=== PATIENT | male | born 1980 | race Two or more races ===

== ENCOUNTER 2018-09-30 21:17 | Emergency (ER) | payer MEDICAID ==
[~2018-09-30] VITALS: Ht 170.2 cm; Wt 99.8 kg
[2018-09-30 21:43] VITALS: BP 142/97
[2018-10-01] MEDS ORDERED: cefTRIAXone SOD 1,000 MG VL IM ONE (00:45)
[2018-10-01] MEDS ORDERED: KETOROLAC TROMETH 60MG/2ML VIAL IM ONE (00:45)
[2018-10-01] MEDS ORDERED: TETANUS-DIPTH-ACEL PERTUSSIS 0.5ML SYRG IM ONE (00:45)
== END 2018-10-01 01:08 | disposition home or self-care (01) ==
LOC: ER 21:17
DX: S91.311A Laceration without foreign body, right foot, initial encounter (principal); L03.115 Cellulitis of right lower limb; W22.8XXA Striking against or struck by other objects, initial encounter; Y93.39 Activity, other involving climbing, rappelling and jumping off; Y92.89 Other specified places as the place of occurrence of the external cause; Y99.8 Other external cause status
CPT/HCPCS: 73630; 90471; 90715; 96372; 99283; J0696; J1885

== ENCOUNTER 2020-02-12 08:13 | Emergency (ER) | payer MEDICAID ==
[~2020-02-12] VITALS: Ht 170.2 cm; Wt 99.8 kg
[2020-02-12 08:58] VITALS: BP 121/81
[2020-02-12 08:58] LABS: Basophils # (auto) 0 10 ^3/uL (0-0.2); Basophils % (auto) 0.5 % (0.0-2.0); Eosinophils # (auto) 0.1 10 ^3/uL (0-0.8); Eosinophils % (auto) 2.1 % (0.0-7.0); Hematocrit 48.4 % (41.0-53.0); Hemoglobin 15.7 g/dL (13.5-17.5); Lymphocytes # (auto) 1.3 10 ^3/uL (0.4-5.4); Lymphocytes % (auto) 21.4 % (10.0-50.0); Mean Corpuscular Hemoglobin 29.6 pg (28.0-32.0); Mean Corpuscular Hgb Conc. 32.4 g/dL (32.0-36.0); Mean Corpuscular Volume 91.3 fL (80.0-100.0); Monocytes # (auto) 0.4 10 ^3/uL (0-1.3); Neutrophils # (auto) 4.2 10 ^3/uL (1.6-8.6); Platelet Count (auto) 303 10^3/uL (140-450); Red Cell Distribution Width 13.3 % (11.8-14.3); White Blood Cell 6.2 10^3/uL (4.4-10.8)
[2020-02-12 09:22] LABS: Alanine Aminotransferase 66 U/L (16-61); Albumin 3.4 g/dL (3.4-5.0); Anion Gap 5 (5-15); Aspartate Aminotransferase 28 U/L (15-37); BUN/Creatinine Ratio 9.3; Blood Alcohol < 3.0 mg/dL (0-5); Blood Urea Nitrogen 10 mg/dL (7-18); Calcium 8.6 mg/dL (8.5-10.1); Carbon Dioxide 29 mmol/L (21-32); Chloride 103 mmol/L (98-107); GFR African American 99 mL/min; GFR Non-African American 82 mL/min; Glucose 104 mg/dL (74-106); Lipase 119 U/L (73-393); Potassium 4.1 mmol/L (3.5-5.1); Sodium 137 mmol/L (136-145)
[2020-02-12 09:25] LABS: Alkaline Phosphatase 114 U/L (45-117); Bilirubin, Total 0.3 mg/dL (0.2-1.0); Total Protein 7.5 g/dL (6.4-8.2)
[2020-02-12 09:26] LABS: Urine Bacteria NONE SEEN /hpf (None Seen); Urine Blood Negative /uL (Negative); Urine Specific Gravity 1.019 (1.001-1.035); Urine WBC <1 /hpf (0 - 3)
[2020-02-12 09:42] LABS: Alcohol, Urine < 3.0 mg/dL (0-5); Amphetamine Screen, Urine NEGATIVE (NEGATIVE); Barbiturate Scree,Urine NEGATIVE (NEGATIVE); Benzodiazephine Screen, Urine NEGATIVE (NEGATIVE); Cannabinoid Screen, Urine NEGATIVE (NEGATIVE); Cocaine Screen, Urine NEGATIVE (NEGATIVE); Opiate Scree,Urine NEGATIVE (NEGATIVE); Phencyclidine Screen, Urine NEGATIVE (NEGATIVE)
== END 2020-02-12 09:51 | disposition home or self-care (01) ==
LOC: ER 08:13
DX: K52.9 Noninfective gastroenteritis and colitis, unspecified (principal); K57.32 Diverticulitis of large intestine without perforation or abscess without bleeding
CPT/HCPCS: 36415; 74176; 80053; 80307; 80320; 81001; 83690; 85025

== ENCOUNTER 2023-05-04 12:20 | Emergency (ER) | payer MEDICAID ==
[~2023-05-04] VITALS: Ht 170.2 cm; Wt 91.0 kg
[2023-05-04] MEDS ORDERED: SODIUM CHLORIDE 0.9% 1,000 ML IV ONE (12:30)
[2023-05-04 13:18] LABS: Basophils # (auto) 0 10 ^3/uL (0-0.2); Basophils % (auto) 0.9 % (0.0-2.0); Eosinophils # (auto) 0.1 10 ^3/uL (0-0.8); Eosinophils % (auto) 2.7 % (0.0-7.0); Hematocrit 45.1 % (41.0-53.0); Hemoglobin 15.1 g/dL (13.5-17.5); Lymphocytes # (auto) 1.8 10 ^3/uL (0.4-5.4); Lymphocytes % (auto) 37.9 % (10.0-50.0); Mean Corpuscular Hemoglobin 29.9 pg (28.0-32.0); Mean Corpuscular Hgb Conc. 33.4 g/dL (32.0-36.0); Mean Corpuscular Volume 89.6 fL (80.0-100.0); Monocytes # (auto) 0.3 10 ^3/uL (0-1.3); Neutrophils # (auto) 2.4 10 ^3/uL (1.6-8.6); Neutrophils % (auto) 51.5 % (37.0-80.0); Nucleated Red Blood Cells % 0.2 %; Red Blood Cells 5.04 10^6/uL (4.5-5.90); Red Cell Distribution Width 12.8 % (11.8-14.3); White Blood Cell 4.7 10^3/uL (4.4-10.8)
[2023-05-04 13:30] LABS: Albumin 3.6 g/dL (3.4-5.0); Calcium 8.8 mg/dL (8.5-10.1); Potassium 4.2 mmol/L (3.5-5.1)
[2023-05-04 13:33] LABS: BUN/Creatinine Ratio 11.4 (10.0-20.0); Bilirubin, Total 0.3 mg/dL (0.2-1.0); Total Protein 6.7 g/dL (6.4-8.2)
[2023-05-04 13:49] VITALS: BP 151/102; TEMP 98.2
[2023-05-04 14:53] LABS: Urine Bacteria NONE SEEN /hpf (None Seen); Urine Blood Negative /uL (Negative); Urine Clarity Clear (Clear); Urine Color Yellow (Yellow); Urine Protein, UAD Negative (Negative); Urine Specific Gravity 1.025 (1.001-1.035); Urine Urobilinogen Normal (Negative); Urine WBC <1 /hpf (0 - 3)
[2023-05-04 15:14] VITALS: PULSE 76; RESP 16; O2SAT 98
[2023-05-04] MEDS ORDERED: PROM1SOL4 PO (16:23)
[2023-05-04] MEDS ORDERED: BENZ100C97 PO (16:23)
== END 2023-05-04 16:31 | disposition home or self-care (01) ==
LOC: ER 12:20
DX: J06.9 Acute upper respiratory infection, unspecified (principal)
CPT/HCPCS: 36415; 71101; 74176; 80053; 81001; 85025; 96360; 99284; J7030

== ENCOUNTER 2023-05-22 13:08 | Emergency (ER) | payer MEDICAID ==
[~2023-05-22] VITALS: Ht 170.2 cm; Wt 105.4 kg
[~2023-05-22 13:08] MED LIST: BENZ100C97 PO; PROM1SOL4 PO
[2023-05-22 14:05] LABS: Basophils # (auto) 0 10 ^3/uL (0-0.2); Basophils % (auto) 0.8 % (0.0-2.0); Eosinophils # (auto) 0.2 10 ^3/uL (0-0.8); Eosinophils % (auto) 3.5 % (0.0-7.0); Hematocrit 45.2 % (41.0-53.0); Hemoglobin 14.6 g/dL (13.5-17.5); Lymphocytes % (auto) 45.2 % (10.0-50.0); Mean Corpuscular Hemoglobin 29.2 pg (28.0-32.0); Mean Corpuscular Hgb Conc. 32.3 g/dL (32.0-36.0); Mean Corpuscular Volume 90.6 fL (80.0-100.0); Monocytes # (auto) 0.3 10 ^3/uL (0-1.3); Monocytes % (auto) 6.8 % (0.0-12.0); Neutrophils % (auto) 43.7 % (37.0-80.0); Nucleated Red Blood Cells % 0.3 %; Red Blood Cells 4.99 10^6/uL (4.5-5.90); Red Cell Distribution Width 12.8 % (11.8-14.3); White Blood Cell 4.5 10^3/uL (4.4-10.8)
[2023-05-22 14:05] LABS: Urine Bacteria FEW /hpf (None Seen); Urine Blood Negative /uL (Negative); Urine Clarity Clear (Clear); Urine Color Yellow (Yellow); Urine Mucus FEW (None Seen); Urine Protein, UAD TRACE (Negative); Urine Specific Gravity 1.027 (1.001-1.035); Urine Urobilinogen Normal (Negative); Urine WBC 1 /hpf (0 - 3); Urine pH 6.5 (5.0-8.0)
[2023-05-22 14:18] LABS: Alanine Aminotransferase 70 U/L (7-40); Albumin 4.6 g/dL (3.2-4.8); Alkaline Phosphatase 99 U/L (46-116); Anion Gap 4.1 (5-15); Aspartate Aminotransferase 24 U/L (13-40); BUN/Creatinine Ratio 7.8 (10.0-20.0); Bilirubin, Total 0.4 mg/dL (0.2-1.0); Blood Urea Nitrogen 8 mg/dL (9-23); Calcium 9.1 mg/dL (8.7-10.4); Carbon Dioxide 28.9 mmol/L (20-30); Chloride 106 mmol/L (98-107); Glucose 101 mg/dL (74-106); Potassium 4.2 mmol/L (3.5-5.1); Sodium 139 mmol/L (136-145)
[2023-05-22] MEDS ORDERED: KETOROLAC TROMETH 60MG/2ML VIAL IM ONE (15:45)
[2023-05-22] MEDS ORDERED: CEPH500C PO (15:52)
[2023-05-22 16:03] VITALS: BP 124/88; PULSE 60; RESP 17; TEMP 99.2; O2SAT 99
== END 2023-05-22 16:25 | disposition home or self-care (01) ==
LOC: ER 13:08
DX: R07.81 Pleurodynia (principal); Z79.899 Other long term (current) drug therapy
CPT/HCPCS: 36415; 74176; 80053; 81001; 85025; 96372; 99285; J1885

== ENCOUNTER 2023-07-26 09:55 | Emergency (ER) | payer MEDICAID ==
[~2023-07-26] VITALS: Ht 170.2 cm; Wt 106.1 kg
[~2023-07-26 09:55] MED LIST changes: +CEPH500C PO
[2023-07-26] MEDS ORDERED: AZIT500T66 PO (10:39)
[2023-07-26] MEDS ORDERED: LIDO2SOL26 MT (10:39)
[2023-07-26 10:43] VITALS: BP 147/83; PULSE 96; RESP 20; TEMP 97.3; O2SAT 99
== END 2023-07-26 10:45 | disposition home or self-care (01) ==
LOC: ER 09:55
DX: J02.9 Acute pharyngitis, unspecified (principal)

== ENCOUNTER 2023-12-03 12:41 | Emergency (ER) | payer MEDICAID, OTHER ==
[~2023-12-03] VITALS: Ht 170.2 cm; Wt 106.5 kg
[~2023-12-03 12:41] MED LIST changes: +AZIT500T66 PO; +LIDO2SOL26 MT
[2023-12-03 13:57] VITALS: BP 146/89
[2023-12-03] MEDS ORDERED: CEPH250C PO (14:26)
[2023-12-03] MEDS: TETANUS-DIPTH-ACEL PERTUSSIS 0.5ML SYR Tdap IM ONE (14:30)
[2023-12-03] MEDS: HYDROcodone-ACET 5/325MG TAB PO ONE (15:16)
[2023-12-03 15:17] VITALS: PULSE 85; RESP 18; O2SAT 96
== END 2023-12-03 15:50 | disposition home or self-care (01) ==
LOC: ER 12:41
DX: S00.03XA Contusion of scalp, initial encounter (principal); M79.602 Pain in left arm; W11.XXXA Fall on and from ladder, initial encounter; Y93.89 Activity, other specified; Y92.89 Other specified places as the place of occurrence of the external cause; Y99.8 Other external cause status
CPT/HCPCS: 70450; 71250; 72125; 74176; 90471; 90715

== ENCOUNTER 2024-02-16 07:24 | Inpatient (IN) | payer OTHER ==
[2024-02-15 18:04] VITALS: BP 139/87; PULSE 77; RESP 18; TEMP 97.8; O2SAT 99
[~2024-02-16] VITALS: Ht 170.2 cm; Wt 108.4 kg
[~2024-02-16 07:24] MED LIST changes: +CEPH250C PO; -CEPH500C PO
[2024-02-16 07:59] LABS: Urine Bacteria None Seen /hpf (None Seen)
[2024-02-16 08:01] LABS: Basophils # (auto) 0.1 10 ^3/uL (0-0.2); Basophils % (auto) 0.5 % (0.0-2.0); Eosinophils # (auto) 0.1 10 ^3/uL (0-0.8); Eosinophils % (auto) 0.6 % (0.0-7.0); Hematocrit 46.9 % (41.0-53.0); Hemoglobin 15.6 g/dL (13.5-17.5); Lymphocytes % (auto) 18.6 % (10.0-50.0); Mean Corpuscular Hemoglobin 29.6 pg (28.0-32.0); Mean Corpuscular Hgb Conc. 33.2 g/dL (32.0-36.0); Mean Corpuscular Volume 89.3 fL (80.0-100.0); Monocytes # (auto) 0.6 10 ^3/uL (0-1.3); Monocytes % (auto) 5.8 % (0.0-12.0); Neutrophils # (auto) 7.9 10 ^3/uL (1.6-8.6); Neutrophils % (auto) 74.5 % (37.0-80.0); Red Blood Cells 5.25 10^6/uL (4.5-5.90); Red Cell Distribution Width 13.3 % (11.8-14.3); White Blood Cell 10.7 10^3/uL (4.4-10.8)
[2024-02-16 08:04] LABS: Urine Blood TRACE /uL (Negative); Urine Clarity Clear (Clear); Urine Color Yellow (Yellow); Urine Protein, UAD TRACE (Negative); Urine Specific Gravity 1.026 (1.001-1.035); Urine Urobilinogen Normal (Negative); Urine WBC <1 /hpf (0 - 3)
[2024-02-16 08:10] LABS: Chloride 105 mmol/L (98-107); Potassium 4.2 mmol/L (3.5-5.1); Sodium 136 mmol/L (136-145)
[2024-02-16 08:11] LABS: Anion Gap 6 (5-15); Calcium 9.5 mg/dL (8.5-10.1); Carbon Dioxide 25 mmol/L (20-30)
[2024-02-16 08:16] LABS: BUN/Creatinine Ratio 8.1 (10.0-20.0); Blood Urea Nitrogen 8 mg/dL (9-23); Glucose 107 mg/dL (74-106)
[2024-02-16] MEDS: PANTOPRAZOLE 40 MG/10 ML VIAL INJ IV ONE (10:10)
[2024-02-16] MEDS: ONDANSETRON HCL 4 MG/2 ML VIAL IV ONE (10:10)
[2024-02-16] MEDS: MORPHINE SULFATE 4 MG/ML SYR/VIAL IV ONE (10:10)
[2024-02-16 10:18] VITALS: PULSE 76; RESP 16; O2SAT 93
[2024-02-16] MEDS ORDERED: MORPHINE SULFATE INJ 2 MG/ml SYRG IV PRN (10:45)
[2024-02-16] MEDS ORDERED: KETOROLAC TROMETH 30 MG/ML 1ML VIAL IV PRN (10:45)
[2024-02-16] MEDS ORDERED: ONDANSETRON HCL 4 MG/2 ML VIAL IV PRN (10:45)
[2024-02-16] MEDS: SODIUM CHLORIDE 0.9% 1,000 ML IV SCH (10:55)
[2024-02-16] MEDS: SODIUM CHLORIDE 0.9% 2,000 ML IV ONE (10:55)
[2024-02-16] MEDS: KETOROLAC TROMETH 30 MG/ML 1ML VIAL IV ONE (10:56)
[2024-02-16] MEDS: HYDROcodone-ACET 5/325MG TAB PO PRN (15:54)
[2024-02-16 18:04] VITALS: BP 139/87; PULSE 77; RESP 18; RESP 19; TEMP 97.8; O2SAT 99
[2024-02-16 18:29] VITALS: BP 139/87; PULSE 76; RESP 18; TEMP 98.4; O2SAT 96
[2024-02-16 20:00] VITALS: PULSE 83; RESP 18; O2SAT 99
[2024-02-16] MEDS: ACETAMINOPHEN 325 MG TAB PO PRN (21:15)
[2024-02-16 21:47] VITALS: BP 157/97; PULSE 83; RESP 18; TEMP 99.2; O2SAT 99
[2024-02-17] VITALS (8 sets, daily range): BP systolic 127–158; BP diastolic 69–95; PULSE 59–82; RESP 16–20; TEMP 98.1–99.3; O2SAT 94–97
[2024-02-17 06:14] LABS: Basophils # (auto) 0 10 ^3/uL (0-0.2); Basophils % (auto) 0.4 % (0.0-2.0); Eosinophils # (auto) 0.1 10 ^3/uL (0-0.8); Eosinophils % (auto) 1.7 % (0.0-7.0); Hematocrit 41.4 % (41.0-53.0); Hemoglobin 13.5 g/dL (13.5-17.5); Lymphocytes # (auto) 1.7 10 ^3/uL (0.4-5.4); Lymphocytes % (auto) 20.4 % (10.0-50.0); Mean Corpuscular Hemoglobin 29.6 pg (28.0-32.0); Mean Corpuscular Hgb Conc. 32.6 g/dL (32.0-36.0); Mean Corpuscular Volume 90.8 fL (80.0-100.0); Monocytes # (auto) 0.6 10 ^3/uL (0-1.3); Monocytes % (auto) 7.2 % (0.0-12.0); Neutrophils % (auto) 70.3 % (37.0-80.0); Red Blood Cells 4.56 10^6/uL (4.5-5.90); Red Cell Distribution Width 13.4 % (11.8-14.3); White Blood Cell 8.5 10^3/uL (4.4-10.8)
[2024-02-17 06:29] LABS: Alanine Aminotransferase 22 U/L (7-40); Albumin 3.9 g/dL (3.2-4.8); Alkaline Phosphatase 93 U/L (46-116); Anion Gap 5 (5-15); Aspartate Aminotransferase 11 U/L (13-40); BUN/Creatinine Ratio 7.8 (10.0-20.0); Blood Urea Nitrogen 7 mg/dL (9-23); Calcium 9.2 mg/dL (8.7-10.4); Carbon Dioxide 27 mmol/L (20-30); Chloride 104 mmol/L (98-107); Glucose 89 mg/dL (74-106); Lipase 65 U/L (12-53); Potassium 4.2 mmol/L (3.5-5.1); Sodium 136 mmol/L (136-145)
[2024-02-17 06:30] LABS: Bilirubin, Total 0.9 mg/dL (0.2-1.0); Total Protein 6.4 g/dL (5.7-8.2)
[2024-02-17] MEDS: PANTOPRAZOLE 40 MG/10 ML VIAL INJ IV SCH (08:29)
[2024-02-17] MEDS: ENOXAPARIN SOD 40 MG/0.4 ML SYRINGE SC SCH (08:36)
[2024-02-18 01:00] VITALS: BP 139/86; PULSE 67; RESP 16; TEMP 98.2; O2SAT 97
[2024-02-18 05:00] VITALS: BP 148/69; PULSE 68; RESP 15; TEMP 97.3; O2SAT 97
[2024-02-18] MEDS ORDERED: PANT40T PO (07:51)
[2024-02-18 08:00] VITALS: BP 143/72; PULSE 70; PULSE 79; RESP 18; TEMP 98.2; O2SAT 96
[2024-02-18 09:00] VITALS: BP 135/90; PULSE 70; RESP 18; TEMP 98.1; O2SAT 96
== END 2024-02-18 10:44 | disposition home or self-care (01) | DRG 282 ==
LOC: ER 07:24 → OVERFLOW 10:39 → CENTRAL 18:27
PROVIDERS: ADMIT Nurse Practitioner Family; ATTEND Family Medicine
DX: K85.90 Acute pancreatitis without necrosis or infection, unspecified (principal); E86.0 Dehydration; Z79.2 Long term (current) use of antibiotics; Z79.899 Other long term (current) drug therapy
CPT/HCPCS: 36415; 74176; 80048; 80053; 80320; 81001; 83690; 85025; C9113; G0378; J1885; J2405

== ENCOUNTER 2024-05-11 18:16 | Emergency (ER) | payer MEDICAID, OTHER ==
[~2024-05-11] VITALS: Ht 170.2 cm; Wt 110.0 kg
[~2024-05-11 18:16] MED LIST changes: -AZIT500T66 PO; -BENZ100C97 PO; -CEPH250C PO; -LIDO2SOL26 MT; +PANT40T PO; -PROM1SOL4 PO
[2024-05-11 19:27] LABS: Basophils # (auto) 0 10 ^3/uL (0-0.2); Basophils % (auto) 0.5 % (0.0-2.0); Eosinophils # (auto) 0 10 ^3/uL (0-0.8); Eosinophils % (auto) 0.5 % (0.0-7.0); Hematocrit 47.9 % (41.0-53.0); Hemoglobin 16.1 g/dL (13.5-17.5); Lymphocytes # (auto) 0.6 10 ^3/uL (0.4-5.4); Lymphocytes % (auto) 7.2 % (10.0-50.0); Mean Corpuscular Hemoglobin 30.1 pg (28.0-32.0); Mean Corpuscular Hgb Conc. 33.7 g/dL (32.0-36.0); Mean Corpuscular Volume 89.4 fL (80.0-100.0); Monocytes # (auto) 0.6 10 ^3/uL (0-1.3); Neutrophils % (auto) 84.8 % (37.0-80.0); Red Blood Cells 5.36 10^6/uL (4.5-5.90); Red Cell Distribution Width 13.2 % (11.8-14.3); White Blood Cell 8.2 10^3/uL (4.4-10.8)
[2024-05-11 19:32] LABS: Urine Bacteria FEW /hpf (None Seen); Urine Blood 1+ /uL (Negative); Urine Clarity Clear (Clear); Urine Color Yellow (Yellow); Urine Mucus FEW (None Seen); Urine Protein, UAD 1+ (Negative); Urine Specific Gravity 1.031 (1.001-1.035); Urine Sperm PRESENT /hpf (None Seen); Urine Urobilinogen Normal (Negative); Urine WBC 1 /hpf (0 - 3); Urine pH 6.5 (5.0-9.0)
[2024-05-11 19:49] LABS: Alanine Aminotransferase 46 U/L (7-40); Albumin 4.5 g/dL (3.2-4.8); Alkaline Phosphatase 112 U/L (46-116); Anion Gap 8 (5-15); Aspartate Aminotransferase 20 U/L (13-40); BUN/Creatinine Ratio 7.4 (10.0-20.0); Blood Urea Nitrogen 8 mg/dL (9-23); Calcium 9.6 mg/dL (8.7-10.4); Carbon Dioxide 26 mmol/L (20-30); Chloride 103 mmol/L (98-107); Glucose 104 mg/dL (74-106); Potassium 3.9 mmol/L (3.5-5.1); Sodium 137 mmol/L (136-145)
[2024-05-11 19:50] LABS: Bilirubin, Total 0.5 mg/dL (0.2-1.0); Total Protein 7.4 g/dL (5.7-8.2)
[2024-05-11] MEDS ORDERED: IBUP-1455 PO (20:48)
[2024-05-11] MEDS ORDERED: AZITTAB PO (20:48)
[2024-05-11] MEDS ORDERED: PROM1SOL4 PO (20:48)
[2024-05-11] MEDS: KETOROLAC TROMETH 30 MG/ML 1ML VIAL IM ONE (21:40)
[2024-05-11 21:41] VITALS: BP 151/99; TEMP 99.6
[2024-05-11 21:43] VITALS: PULSE 104; RESP 13; O2SAT 98
== END 2024-05-11 21:47 | disposition home or self-care (01) ==
LOC: ER 18:16
DX: J06.9 Acute upper respiratory infection, unspecified (principal); Z79.899 Other long term (current) drug therapy
CPT/HCPCS: 36415; 74176; 80053; 81001; 83690; 85025